=== PATIENT | female | born 1990 | race Caucasian/White ===

== ENCOUNTER 2018-11-30 08:34 | Emergency (ER) | payer OTHER ==
[~2018-11-30] VITALS: Ht 172.7 cm; Wt 113.4 kg
[2018-11-30 08:50] VITALS: Ht 172.7 cm; Wt 113.4 kg
[2018-11-30 10:18] LABS: CALCIUM 8.3 mg/dL (8.5-10.1); CARBON DIOXIDE 25.8 mmol/L (21-32); CHLORIDE SERUM 105 mmol/L (98-107); CREATININE SERUM 0.8 mg/dL (0.6-1.0); GFR1 > 60 mL/min; GLUCOSE SERUM 111 mg/dL (74-106); POTASSIUM SERUM 4.2 mmol/L (3.5-5.1); SODIUM SERUM 138 mmol/L (136-145)
[2018-11-30 10:23] LABS: ALKALINE PHOSPHATASE 80 U/L (46-116); ALT/SGPT 46 U/L (14-59); AST/SGOT 23 U/L (15-37); BILIRUBIN TOTAL 0.49 mg/dL (0.20-1.00); TOTAL PROTEIN, SERUM 7.2 g/dL (6.4-8.2); URIC ACID 5.8 mg/dL (2.6-6.0)
[2018-11-30 10:24] LABS: ALBUMIN 3.2 g/dL (3.4-5.0)
[2018-11-30 11:12] LABS: BASOPHIL % 0.3 % (0-2); PLATELET COUNT 304 x10^3mcL (130-400); RED CELL DISTRIBUTION WIDTH 14.4 % (11.5-14.5)
[2018-11-30 12:07] VITALS: BP 126/74
== END 2018-11-30 12:07 | disposition home or self-care (01) ==
LOC: ED 08:34
PROVIDERS: Emergency Medicine
DX: N20.0 Calculus of kidney (principal)
CPT/HCPCS: J1885; J2405; J7030